=== PATIENT | male | born 2000 | race Two or more races ===

== ENCOUNTER 2020-09-21 06:58 | Emergency (ER) | payer OTHER ==
[~2020-09-21] VITALS: Ht 177.8 cm; Wt 76.8 kg
--- NOTE | 2020-09-21 08:01 | REP ---
INDICATION: trauma. COMPARISON: No comparison radiographs.. TECHNIQUE: Four views of the right hand are provided. FINDINGS: Four views of the right hand demonstrate soft tissue swelling dorsally over the metacarpals on the lateral radiograph.. No fracture or subluxation is seen. No opaque foreign body noted. IMPRESSION: No fracture seen. Dorsal soft tissue swelling over the metacarpals.. <Electronically signed by Shashank Yu > 09/21/20 [id number]
[2020-09-21] MEDS ORDERED: IBUP200C28 PO (08:36)
[2020-09-21 08:47] VITALS: BP 114/68
== END 2020-09-21 08:52 | disposition home or self-care (01) ==
LOC: M ED 06:58
DX: S60.221A Contusion of right hand, initial encounter (principal); W22.09XA Striking against other stationary object, initial encounter; Y92.009 Unspecified place in unspecified non-institutional (private) residence as the place of occurrence of the external cause; Y93.9 Activity, unspecified; Y99.9 Unspecified external cause status

== ENCOUNTER 2020-12-01 14:08 | Emergency (ER) | payer OTHER ==
[~2020-12-01] VITALS: Ht 177.8 cm; Wt 81.8 kg
[~2020-12-01 14:08] MED LIST: IBUP200C28 PO
[2020-12-01] MEDS ORDERED: ACETAMINOPHEN 500 MG TAB PO ONE (17:30)
[2020-12-01] MEDS ORDERED: METOCLOPRAMIDE 10 MG TAB PO ONE (17:30)
[2020-12-01] MEDS ORDERED: LIDOCAINE 4% CREAM 5GM (LMX4) TOP ONE (17:30)
[2020-12-01] MEDS ORDERED: methocarbamoL 750 MG TAB PO ONE (17:30)
--- NOTE | 2020-12-01 18:59 | REPVR ---
PROCEDURE INFORMATION: Exam: CT Head Without Contrast Exam date and time: 12/01/2020 5:45 PM Age: 20 years old Clinical indication: Other: TELLES x 4 days since hit head steel door, dizzy, photophobia TECHNIQUE: Imaging protocol: Computed tomography of the head without contrast. Radiation optimization: All CT scans at this facility use at least one of these dose optimization techniques: automated exposure control; mA and/or kV adjustment per patient size (includes targeted exams where dose is matched to clinical indication); or iterative reconstruction. COMPARISON: No relevant prior studies available. FINDINGS: Brain: Unremarkable. No hemorrhage. No significant white matter disease. No edema. Cerebral ventricles: No ventriculomegaly. Paranasal sinuses: Visualized sinuses are unremarkable. No fluid levels. Mastoid air cells: Visualized mastoid air cells are well aerated. Bones/joints: Unremarkable. No acute fracture. Soft tissues: Unremarkable. IMPRESSION: No acute abnormality. Electronically signed by: Burke Chavez On 12/01/2020 18:58:45 PM
--- NOTE | 2020-12-01 19:04 | REPVR ---
PROCEDURE INFORMATION: Exam: CT Cervical Spine Without Contrast Exam date and time: 12/01/2020 5:45 PM Age: 20 years old Clinical indication: Other: TELLES x 4 days since hit head steel door, dizzy, photophobia TECHNIQUE: Imaging protocol: Computed tomography images of the cervical spine without contrast. Radiation optimization: All CT scans at this facility use at least one of these dose optimization techniques: automated exposure control; mA and/or kV adjustment per patient size (includes targeted exams where dose is matched to clinical indication); or iterative reconstruction. COMPARISON: No relevant prior studies available. FINDINGS: Bones/joints: There is loss of normal cervical lordosis with mild flexion through the cervical spine, likely secondary to splinting and/or patient positioning. The intervertebral disc spaces and vertebral body heights are well maintained. The facet joints are intact. Bone density is normal. No fracture or subluxation. Mild scoliosis of the cervical spine, apex to the right. Discs/Spinal canal/Neural foramina: No alejandro spinal stenosis. No severe bony neural foraminal narrowing. Lungs: Lung apices are clear. Soft tissues: Unremarkable. IMPRESSION: No fracture. Electronically signed by: Burke Chavez On 12/01/2020 19:03:29 PM
[2020-12-01] MEDS ORDERED: REGL10TA6 PO (19:33)
[2020-12-01] MEDS ORDERED: ANEC4CRE3 TOP (19:33)
[2020-12-01 19:59] VITALS: BP 131/65
== END 2020-12-01 20:01 | disposition home or self-care (01) ==
LOC: M ED 14:08
DX: S06.0X0A Concussion without loss of consciousness, initial encounter (principal); R51.9 Headache, unspecified; H53.149 Visual discomfort, unspecified; W22.8XXA Striking against or struck by other objects, initial encounter; Y92.9 Unspecified place or not applicable; Y93.9 Activity, unspecified; Y99.8 Other external cause status

== ENCOUNTER 2020-12-07 06:32 | Emergency (ER) | payer OTHER ==
[~2020-12-07] VITALS: Ht 177.8 cm; Wt 74.9 kg
[~2020-12-07 06:32] MED LIST changes: +ANEC4CRE3 TOP; +REGL10TA6 PO
[2020-12-07] MEDS ORDERED: KETOROLAC 30 MG/ML 1ML VIAL IV ONE (07:45)
[2020-12-07 08:34] LABS: BASO # 0.1 10^3/uL (0.0-0.2); BASO % 0.7 % (0.0-1.0); EOS # 0.1 10^3/uL (0.0-0.5); EOS % 1.3 % (0.0-3.0); HEMOGLOBIN 17.2 g/dl (13.5-17.5); LYMPH # 2.3 10^3/uL (1.5-5.0); LYMPH % 28.5 % (24.0-44.0); MEAN CORPUSCULAR HEMOGLOBIN 27.7 pg (27.0-33.0); MEAN CORPUSCULAR HGB CONC 33.7 g/dl (32.0-36.5); MEAN CORPUSCULAR VOLUME 82.3 fl (80.0-96.0); MONO # 0.7 10^3/uL (0.0-0.8); MONO % 9.1 % (2.0-8.0); NEUTROPHILS # 4.9 10^3/uL (1.5-8.5); PLATELET COUNT, AUTOMATED 349 10^3/uL (150-450); WHITE BLOOD COUNT 8.2 10^3/uL (4.0-10.0)
[2020-12-07 08:47] LABS: ALBUMIN 4.3 GM/DL (3.2-5.2); BILIRUBIN,DIRECT 0.2 MG/DL (0.0-0.2); BILIRUBIN,TOTAL 0.9 MG/DL (0.2-1.0); TOTAL PROTEIN 7.8 GM/DL (6.4-8.2)
[2020-12-07] MEDS ORDERED: ISOVUE-370 76% 100ML VIAL As Ordered ONE (09:36)
[2020-12-07 09:48] LABS: GC DNA AMPLIFICATION NEGATIVE (NEGATIVE)
--- NOTE | 2020-12-07 10:20 | REP ---
INDICATION: lower abd pain COMPARISON: None. TECHNIQUE: CT Scan of the abdomen and pelvis was performed with intravenous administration of 100 cc of Isovue 370, without oral contrast. Sagittal and coronal reconstruction images are performed. FINDINGS: Lung bases: Unremarkable. Liver: Normal Gallbladder: Unremarkable. Spleen: Normal. Adrenals: Normal. Pancreas: Normal. Kidneys: Normal. Small and large bowel: Unremarkable. Free fluid: None. Abdominal aorta: No aneurysm or dissection. Adenopathy: None. Appendix: Not inflamed. Osseous structures: Unremarkable. Pelvis: No mass. IMPRESSION: Negative CT abdomen and pelvis. <Electronically signed by Chang Baeza > 12/07/20 [id number]
--- NOTE | 2020-12-07 11:56 | REP ---
INDICATION: pain in testicle. COMPARISON: None. TECHNIQUE: Real-time sonographic evaluation of scrotum and contents performed. FINDINGS: The testicles are normal in size and echotexture, right testicle measuring 4.5 x 2.3 x 3.1 cm and left testicle 4.6 x 2.0 x 3.0 cm. There is no testicular mass or torsion, blood flow is seen in each testicle with duplex Doppler evaluation. On the right an appendix epididymis is noted containing a 3 mm cyst. There is a cyst in the head of left epididymis 6 x 5 x 4 mm. IMPRESSION: No acute abnormalities. No testicular mass or torsion. Subcentimeter cyst is seen in each epididymis. <Electronically signed by Chang Baeza > 12/07/20 [id number]
[2020-12-07 12:15] VITALS: BP 115/67
== END 2020-12-07 12:35 | disposition home or self-care (01) ==
LOC: M ED 06:32
DX: R30.0 Dysuria (principal)
CPT/HCPCS: 74177; 76870; 80047; 80076; 81001; 83690; 85025; 87491; 87591; 93976; 96374; 99284; J1885; Q9967